=== PATIENT | male | born 1935 | race African-American/Black ===

== ENCOUNTER 2020-10-10 13:11 | Inpatient (IN) ==
[2020-10-10] MEDS ORDERED: ASPIRIN 325 MG TABLET PO STA (13:52)
[2020-10-10 14:12] LABS: Basophils % 0.3 % (0.0-0.8); Eosinophils # 0.6 10*3/uL (0.0-0.87); Eosinophils % 9.3 % (0.00-10.9); Hematocrit 30.3 VOL% (42.0-52.0); Hemoglobin 9.4 GM/DL (14.0-18.0); Immature Granulocytes % 0.8 %; Immature Granulocytes Absolute 0.05 #; Lymphocytes # 1.6 10*3/uL (1.4-4.0); Lymphocytes % 24.4 % (21.2-54.2); Mean Corpuscular Volume 95.6 FL (87-102); Neutrophils % 52.2 % (38.7-73.9); Platelet Count 644 T/CUMM (130-400); Red Blood Count 3.17 MC/CUMM (3.8-5.5); Red Cell Distribution Width 15.6 % (9.3-17.3); White Blood Count 6.4 T/CUMM (4-12)
[2020-10-10 14:22] LABS: INR 1.1; PT Patient Result 11.8 SECS (10.5-12.0)
[2020-10-10 14:39] LABS: Alanine Aminotransferase 23 U/L (16-61); Albumin 2.9 G/DL (3.4-5.0); Alkaline Phosphatase 83 U/L (45-117); Aspartate Amino Transferase 18 U/L (0-37); Bilirubin,Total < 0.39 MG/DL (0.20-1.00); Blood Urea Nitrogen 49 MG/DL (7-18); Calcium 8.4 MG/DL (8.5-10.1); Carbon Dioxide 23 MMOL/L (21-32); Estimated Glom Filtration Rate 35 ML/MIN; Glucose 125 MG/DL (74-106); Osmolality,Calculated 292.4 MOS/KG (273-304); Potassium 5.6 MMOL/L (3.5-5.1); Sodium 140 MMOL/L (136-145); Total Protein 6.6 G/DL (6.4-8.2)
[2020-10-10] MEDS ORDERED: GLUCAGON 1 MG VIAL IM PRN (15:40)
[2020-10-10] MEDS ORDERED: DEXTROSE 50% 25 GM/50 ML VIAL IV PRN (15:40)
[2020-10-10] MEDS: ENOXAPARIN 30 MG/0.3 ML SYRINGE SUBCUT SCH (20:29)
[2020-10-11 05:35] LABS: Basophils % 0.6 % (0.0-0.8); Eosinophils # 0.7 10*3/uL (0.0-0.87); Eosinophils % 9.9 % (0.00-10.9); Hematocrit 28.6 VOL% (42.0-52.0); Hemoglobin 8.9 GM/DL (14.0-18.0); Immature Granulocytes % 1.3 %; Immature Granulocytes Absolute 0.09 #; Lymphocytes # 2.1 10*3/uL (1.4-4.0); Lymphocytes % 29.5 % (21.2-54.2); Mean Corpuscular HGB Conc 31.1 GM/DL (32-36); Mean Corpuscular Volume 95.7 FL (87-102); Mean Platelet Volume 11.1 FL (9.6-12.0); Monocytes % 14.6 % (1.7-12.7); Neutrophils % 44.1 % (38.7-73.9); Platelet Count 593 T/CUMM (130-400); Red Blood Count 2.99 MC/CUMM (3.8-5.5); Red Cell Distribution Width 15.7 % (9.3-17.3); White Blood Count 6.9 T/CUMM (4-12)
[2020-10-11 06:11] LABS: Alanine Aminotransferase 17 U/L (16-61); Albumin 2.6 G/DL (3.4-5.0); Alkaline Phosphatase 75 U/L (45-117); Aspartate Amino Transferase 16 U/L (0-37); Bilirubin,Total < 0.39 MG/DL (0.20-1.00); Blood Urea Nitrogen 41 MG/DL (7-18); Calcium 8.9 MG/DL (8.5-10.1); Carbon Dioxide 21 MMOL/L (21-32); Estimated Glom Filtration Rate 39 ML/MIN; Glucose 99 MG/DL (74-106); HDL Cholesterol 44 MG/DL (40-60); Potassium 5.6 MMOL/L (3.5-5.1); Risk Ratio 4.82; Sodium 136 MMOL/L (136-145); Total Protein 6.3 G/DL (6.4-8.2); Triglycerides 100 MG/DL (2-150)
[2020-10-11] MEDS ORDERED: MAGNESIUM SULF RIDER 4 GM/100 ML PREMIX IV PRN (08:52)
[2020-10-11] MEDS ORDERED: MAGNESIUM SULF RIDER 2 GM/50 ML PREMIX IV PRN (08:52)
[2020-10-11] MEDS ORDERED: NITROGLYCERIN SL 0.4 MG TABLET SL PRN (09:24)
[2020-10-11] MEDS: ISOSORBIDE MONONITRATE 30 MG TABLET PO SCH (09:34)
[2020-10-11] MEDS: FERROUS SULFATE 325 MG TABLET PO SCH (09:34)
[2020-10-11] MEDS: carvediloL 12.5 MG TABLET PO SCH ×2 (09:34→20:44)
[2020-10-11] MEDS: ASPIRIN EC 81 MG TABLET PO SCH (09:34)
[2020-10-11] MEDS: CLOPIDOGREL 75 MG TABLET PO SCH (09:35)
[2020-10-11] MEDS ORDERED: SODIUM POLYSTYRENE SULFATE 15 GM/60 ML BOTTLE PO ONE (12:26)
[2020-10-11] MEDS: ATORVASTATIN 80 MG TABLET PO SCH (20:44)
[2020-10-11] MEDS: ENOXAPARIN 30 MG/0.3 ML SYRINGE SUBCUT SCH (20:45)
[2020-10-11] MEDS ORDERED: ATORVASTATIN 40 MG TABLET PO SCH (21:00)
[2020-10-12 05:45] LABS: Basophils % 0.3 % (0.0-0.8); Eosinophils # 0.7 10*3/uL (0.0-0.87); Eosinophils % 9.2 % (0.00-10.9); Hematocrit 28.4 VOL% (42.0-52.0); Hemoglobin 8.7 GM/DL (14.0-18.0); Immature Granulocytes % 0.8 %; Immature Granulocytes Absolute 0.06 #; Lymphocytes # 2.5 10*3/uL (1.4-4.0); Lymphocytes % 35.2 % (21.2-54.2); Mean Corpuscular HGB Conc 30.6 GM/DL (32-36); Mean Corpuscular Volume 94.7 FL (87-102); Mean Platelet Volume 11.1 FL (9.6-12.0); Monocytes % 12.4 % (1.7-12.7); Neutrophils % 42.1 % (38.7-73.9); Platelet Count 600 T/CUMM (130-400); Red Cell Distribution Width 15.5 % (9.3-17.3); White Blood Count 7.2 T/CUMM (4-12)
[2020-10-12 06:22] LABS: Calcium 8.7 MG/DL (8.5-10.1); Osmolality,Calculated 288.4 MOS/KG (273-304); Potassium 5.1 MMOL/L (3.5-5.1)
[2020-10-12] MEDS ORDERED: MAGNESIUM SULF RIDER 2 GM/50 ML PREMIX IV ONE (08:07)
[2020-10-12] MEDS ORDERED: carvediloL 25 MG TABLET PO SCH (09:00)
[2020-10-12] MEDS ORDERED: REGADENOSON 0.4 MG/5 ML SYRINGE IV ONE (09:21)
[2020-10-12] MEDS: ASPIRIN EC 81 MG TABLET PO SCH (10:02)
[2020-10-12] MEDS: ISOSORBIDE MONONITRATE 30 MG TABLET PO SCH (10:02)
[2020-10-12] MEDS: CLOPIDOGREL 75 MG TABLET PO SCH (10:03)
[2020-10-12] MEDS: FERROUS SULFATE 325 MG TABLET PO SCH (10:03)
[2020-10-12] MEDS: SODIUM ZIRCONIUM CYCLOSILICATE 10 GM PACK PO SCH (11:42)
[2020-10-12] MEDS: amLODIPine 5 MG TABLET PO SCH (12:24)
[2020-10-12] MEDS ORDERED: ALUM/MAG/SIMETH/LIDO VISC 1:1 30 ML BOTTLE PO ONE (12:59)
[2020-10-12] MEDS ORDERED: MORPHINE 2 MG/1 ML SYRINGE IV ONE (14:26)
[2020-10-12] MEDS ORDERED: ASPIRIN EC 325 MG TABLET PO ONE (14:42)
[2020-10-12] MEDS: CALCIUM CARBONATE CHEW 500 MG TABLET PO PRN ×2 (14:42→14:44)
[2020-10-12] MEDS ORDERED: ASPIRIN 325 MG TABLET PO ONE (14:55)
[2020-10-12] MEDS ORDERED: SODIUM CHLORIDE 0.9% 1,000 ML IV SCH (15:00)
[2020-10-12] MEDS ORDERED: MAGNESIUM SULF RIDER 2 GM/50 ML PREMIX IV PRN (15:14)
[2020-10-12] MEDS ORDERED: diphenhydrAMINE CAP 25 MG CAPSULE PO ONE (15:14)
[2020-10-12] MEDS ORDERED: DIAZEPAM 5 MG TABLET PO ONE (15:14)
[2020-10-12 15:18] LABS: High Sensitive Troponin I* 93.3 ng/L (0-78)
[2020-10-12] MEDS: carvediloL 12.5 MG TABLET PO SCH (18:43)
[2020-10-12] MEDS: ENOXAPARIN 30 MG/0.3 ML SYRINGE SUBCUT SCH (20:24)
[2020-10-12] MEDS: ATORVASTATIN 80 MG TABLET PO SCH (20:24)
[2020-10-13 04:59] LABS: Basophils % 0.1 % (0.0-0.8); Eosinophils # 0.6 10*3/uL (0.0-0.87); Hematocrit 27.4 VOL% (42.0-52.0); Hemoglobin 8.4 GM/DL (14.0-18.0); Immature Granulocytes % 0.8 %; Immature Granulocytes Absolute 0.06 #; Lymphocytes # 2.5 10*3/uL (1.4-4.0); Lymphocytes % 34.9 % (21.2-54.2); Mean Corpuscular HGB Conc 30.7 GM/DL (32-36); Mean Corpuscular Volume 93.2 FL (87-102); Mean Platelet Volume 11.1 FL (9.6-12.0); Monocytes % 12.2 % (1.7-12.7); Platelet Count 574 T/CUMM (130-400); Red Blood Count 2.94 MC/CUMM (3.8-5.5); Red Cell Distribution Width 15.5 % (9.3-17.3); White Blood Count 7.2 T/CUMM (4-12)
[2020-10-13 05:40] LABS: Calcium 8.4 MG/DL (8.5-10.1); Osmolality,Calculated 285.7 MOS/KG (273-304); Potassium 5.6 MMOL/L (3.5-5.1)
[2020-10-13] MEDS ORDERED: SODIUM POLYSTYRENE SULFATE 15 GM/60 ML BOTTLE PO ONE (07:36)
[2020-10-13] MEDS: ASPIRIN EC 81 MG TABLET PO SCH (08:23)
[2020-10-13] MEDS: CLOPIDOGREL 75 MG TABLET PO SCH (08:23)
[2020-10-13] MEDS: SODIUM ZIRCONIUM CYCLOSILICATE 10 GM PACK PO SCH (08:23)
[2020-10-13] MEDS: carvediloL 12.5 MG TABLET PO SCH ×2 (08:23→16:26)
[2020-10-13] MEDS: amLODIPine 5 MG TABLET PO SCH (08:23)
[2020-10-13] MEDS ORDERED: SODIUM CHLORIDE 0.9% 1,000 ML IV SCH (09:00)
[2020-10-13] MEDS: FERROUS SULFATE 325 MG TABLET PO SCH (09:53)
[2020-10-13] MEDS: ISOSORBIDE MONONITRATE 30 MG TABLET PO SCH (09:53)
[2020-10-13] MEDS ORDERED: DIAZEPAM 5 MG TABLET PO ONE (12:00)
[2020-10-13] MEDS ORDERED: HEPARIN/NACL 0.9% 2 UNITS/ML 3,000 UNIT/1,500 ML BAG IV ONE (12:05)
[2020-10-13] MEDS ORDERED: LIDOCAINE 1% 20 ML VIAL ONE (12:05)
[2020-10-13] MEDS ORDERED: diphenhydrAMINE CAP 25 MG CAPSULE ONE (12:11)
[2020-10-13] MEDS ORDERED: MIDAZOLAM 2 MG/2 ML VIAL ONE (13:00)
[2020-10-13] MEDS ORDERED: fentaNYL 100 MCG/2 ML VIAL ONE ×2 (13:00→14:08)
[2020-10-13] MEDS ORDERED: hydrALAZINE 20 MG/1 ML VIAL ONE (13:23)
[2020-10-13] MEDS: ATORVASTATIN 80 MG TABLET PO SCH (20:39)
[2020-10-13] MEDS: ENOXAPARIN 30 MG/0.3 ML SYRINGE SUBCUT SCH (20:39)
[2020-10-14 05:52] LABS: Calcium 8.4 MG/DL (8.5-10.1); Osmolality,Calculated 271.4 MOS/KG (273-304); Potassium 4.4 MMOL/L (3.5-5.1)
[2020-10-14] MEDS: carvediloL 12.5 MG TABLET PO SCH (08:40)
[2020-10-14] MEDS: SODIUM ZIRCONIUM CYCLOSILICATE 10 GM PACK PO SCH (08:40)
[2020-10-14] MEDS: ASPIRIN EC 81 MG TABLET PO SCH (08:40)
[2020-10-14] MEDS: FERROUS SULFATE 325 MG TABLET PO SCH (08:40)
[2020-10-14] MEDS: amLODIPine 5 MG TABLET PO SCH (08:40)
[2020-10-14] MEDS: ISOSORBIDE MONONITRATE 30 MG TABLET PO SCH (08:40)
[2020-10-14] MEDS: ENOXAPARIN 30 MG/0.3 ML SYRINGE SUBCUT SCH (21:02)
[2020-10-14] MEDS: ASCORBIC ACID 500 MG TABLET PO SCH (21:02)
[2020-10-14] MEDS: ATORVASTATIN 80 MG TABLET PO SCH (21:02)
[2020-10-14] MEDS: carvediloL 25 MG TABLET PO SCH (21:02)
[2020-10-15 06:37] LABS: Basophils % 0.1 % (0.0-0.8); Eosinophils # 0.6 10*3/uL (0.0-0.87); Eosinophils % 8.1 % (0.00-10.9); Hematocrit 26.1 VOL% (42.0-52.0); Immature Granulocytes % 0.9 %; Immature Granulocytes Absolute 0.06 #; Lymphocytes # 2.2 10*3/uL (1.4-4.0); Lymphocytes % 31.8 % (21.2-54.2); Mean Corpuscular HGB Conc 30.7 GM/DL (32-36); Mean Corpuscular Volume 92.9 FL (87-102); Mean Platelet Volume 11.1 FL (9.6-12.0); Monocytes % 10.9 % (1.7-12.7); Neutrophils % 48.2 % (38.7-73.9); Platelet Count 548 T/CUMM (130-400); Red Blood Count 2.81 MC/CUMM (3.8-5.5); Red Cell Distribution Width 15.4 % (9.3-17.3); White Blood Count 6.8 T/CUMM (4-12)
[2020-10-15 06:55] LABS: Calcium 8.1 MG/DL (8.5-10.1); Osmolality,Calculated 288.4 MOS/KG (273-304); Potassium 4.2 MMOL/L (3.5-5.1)
[2020-10-15 06:58] LABS: Calcium 8.1 MG/DL (8.5-10.1); Osmolality,Calculated 288.4 MOS/KG (273-304); Potassium 4.6 MMOL/L (3.5-5.1)
[2020-10-15] MEDS: ASCORBIC ACID 500 MG TABLET PO SCH ×2 (08:54→21:52)
[2020-10-15] MEDS: ISOSORBIDE MONONITRATE 30 MG TABLET PO SCH (08:54)
[2020-10-15] MEDS: ASPIRIN EC 81 MG TABLET PO SCH (08:54)
[2020-10-15] MEDS: SODIUM ZIRCONIUM CYCLOSILICATE 10 GM PACK PO SCH (08:55)
[2020-10-15] MEDS: amLODIPine 5 MG TABLET PO SCH (08:55)
[2020-10-15] MEDS: carvediloL 25 MG TABLET PO SCH ×2 (08:55→21:52)
[2020-10-15] MEDS: FERROUS SULFATE 325 MG TABLET PO SCH (08:55)
[2020-10-15] MEDS ORDERED: amLODIPine 5 MG TABLET PO ONE (11:53)
[2020-10-15] MEDS ORDERED: BISACODYL 5 MG TABLET PO PRN (20:53)
[2020-10-15] MEDS ORDERED: BISACODYL 5 MG TABLET PO ONE (20:54)
[2020-10-15] MEDS: ATORVASTATIN 80 MG TABLET PO SCH (21:50)
[2020-10-15] MEDS: ENOXAPARIN 30 MG/0.3 ML SYRINGE SUBCUT SCH (21:52)
[2020-10-16 06:17] LABS: Basophils % 0.2 % (0.0-0.8); Eosinophils # 0.6 10*3/uL (0.0-0.87); Eosinophils % 9.1 % (0.00-10.9); Hematocrit 26.7 VOL% (42.0-52.0); Hemoglobin 8.3 GM/DL (14.0-18.0); Immature Granulocytes % 0.6 %; Immature Granulocytes Absolute 0.04 #; Lymphocytes # 1.9 10*3/uL (1.4-4.0); Lymphocytes % 28.4 % (21.2-54.2); Mean Corpuscular HGB Conc 31.1 GM/DL (32-36); Mean Corpuscular Volume 93.7 FL (87-102); Mean Platelet Volume 10.9 FL (9.6-12.0); Monocytes % 10.3 % (1.7-12.7); Neutrophils % 51.4 % (38.7-73.9); Platelet Count 536 T/CUMM (130-400); Red Blood Count 2.85 MC/CUMM (3.8-5.5); Red Cell Distribution Width 15.4 % (9.3-17.3); White Blood Count 6.5 T/CUMM (4-12)
[2020-10-16 06:55] LABS: Calcium 8.2 MG/DL (8.5-10.1); Osmolality,Calculated 288.5 MOS/KG (273-304); Potassium 4.3 MMOL/L (3.5-5.1)
[2020-10-16] MEDS: FERROUS SULFATE 325 MG TABLET PO SCH (09:15)
[2020-10-16] MEDS: ASPIRIN EC 81 MG TABLET PO SCH (09:15)
[2020-10-16] MEDS: SODIUM ZIRCONIUM CYCLOSILICATE 10 GM PACK PO SCH (09:15)
[2020-10-16] MEDS: ISOSORBIDE MONONITRATE 30 MG TABLET PO SCH (09:16)
[2020-10-16] MEDS: ASCORBIC ACID 500 MG TABLET PO SCH ×2 (09:16→20:59)
[2020-10-16] MEDS: amLODIPine 10 MG TABLET PO SCH (09:16)
[2020-10-16] MEDS: carvediloL 25 MG TABLET PO SCH ×2 (09:16→21:00)
[2020-10-16] MEDS: ATORVASTATIN 80 MG TABLET PO SCH (21:00)
[2020-10-16] MEDS: ENOXAPARIN 30 MG/0.3 ML SYRINGE SUBCUT SCH (21:01)
[2020-10-17 05:31] LABS: Basophils % 0.2 % (0.0-0.8); Eosinophils # 0.5 10*3/uL (0.0-0.87); Eosinophils % 7.8 % (0.00-10.9); Hematocrit 24.6 VOL% (42.0-52.0); Hemoglobin 7.6 GM/DL (14.0-18.0); Immature Granulocytes % 0.8 %; Immature Granulocytes Absolute 0.05 #; Lymphocytes # 1.8 10*3/uL (1.4-4.0); Mean Corpuscular HGB Conc 30.9 GM/DL (32-36); Mean Corpuscular Volume 93.9 FL (87-102); Mean Platelet Volume 11.2 FL (9.6-12.0); Monocytes % 10.6 % (1.7-12.7); Neutrophils % 51.6 % (38.7-73.9); Platelet Count 520 T/CUMM (130-400); Red Blood Count 2.62 MC/CUMM (3.8-5.5); Red Cell Distribution Width 15.4 % (9.3-17.3); White Blood Count 6.3 T/CUMM (4-12)
[2020-10-17 05:48] LABS: Calcium 8.1 MG/DL (8.5-10.1); Osmolality,Calculated 286.7 MOS/KG (273-304); Potassium 4.3 MMOL/L (3.5-5.1)
[2020-10-17] MEDS ORDERED: SODIUM CHLORIDE 0.9% 1,000 ML IV PRN ×2 (08:10→08:34)
[2020-10-17] MEDS: amLODIPine 10 MG TABLET PO SCH (08:44)
[2020-10-17] MEDS: SODIUM ZIRCONIUM CYCLOSILICATE 10 GM PACK PO SCH (08:44)
[2020-10-17] MEDS: FERROUS SULFATE 325 MG TABLET PO SCH (08:45)
[2020-10-17] MEDS: ASPIRIN EC 81 MG TABLET PO SCH (08:45)
[2020-10-17] MEDS: ACETYLCYSTEINE 600 MG CAPSULE PO SCH ×2 (08:45→20:42)
[2020-10-17] MEDS: ISOSORBIDE MONONITRATE 30 MG TABLET PO SCH (08:45)
[2020-10-17] MEDS: ASCORBIC ACID 500 MG TABLET PO SCH ×2 (08:45→20:42)
[2020-10-17] MEDS: hydrALAZINE 25 MG TABLET PO SCH ×3 (08:45→20:42)
[2020-10-17] MEDS: carvediloL 25 MG TABLET PO SCH ×2 (08:45→20:42)
[2020-10-17] MEDS: SODIUM CHLORIDE 0.9% 1,000 ML IV SCH (08:50)
[2020-10-17] MEDS: CLOPIDOGREL 75 MG TABLET PO SCH (10:43)
[2020-10-17] MEDS: ATORVASTATIN 80 MG TABLET PO SCH (20:42)
[2020-10-17] MEDS: ENOXAPARIN 30 MG/0.3 ML SYRINGE SUBCUT SCH (20:43)
[2020-10-18] MEDS: SODIUM CHLORIDE 0.9% 1,000 ML IV SCH ×2 (01:42→15:10)
[2020-10-18 05:49] LABS: Basophils % 0.2 % (0.0-0.8); Eosinophils # 0.4 10*3/uL (0.0-0.87); Eosinophils % 7.4 % (0.00-10.9); Hematocrit 29.5 VOL% (42.0-52.0); Immature Granulocytes % 0.9 %; Immature Granulocytes Absolute 0.05 #; Lymphocytes # 1.6 10*3/uL (1.4-4.0); Lymphocytes % 27.1 % (21.2-54.2); Mean Corpuscular HGB Conc 31.5 GM/DL (32-36); Mean Corpuscular Volume 89.7 FL (87-102); Mean Platelet Volume 11.1 FL (9.6-12.0); Monocytes % 11.2 % (1.7-12.7); Neutrophils % 53.2 % (38.7-73.9); Platelet Count 506 T/CUMM (130-400); Red Cell Distribution Width 16.7 % (9.3-17.3); White Blood Count 5.8 T/CUMM (4-12)
[2020-10-18 05:56] LABS: Hemoglobin 9.3 GM/DL (14.0-18.0); Red Blood Count 3.29 MC/CUMM (3.8-5.5)
[2020-10-18 06:01] LABS: Calcium 8.2 MG/DL (8.5-10.1); Osmolality,Calculated 287.4 MOS/KG (273-304)
[2020-10-18] MEDS: ISOSORBIDE MONONITRATE 30 MG TABLET PO SCH (10:14)
[2020-10-18] MEDS: CLOPIDOGREL 75 MG TABLET PO SCH (10:14)
[2020-10-18] MEDS: hydrALAZINE 25 MG TABLET PO SCH (10:15)
[2020-10-18] MEDS: SODIUM ZIRCONIUM CYCLOSILICATE 10 GM PACK PO SCH (10:15)
[2020-10-18] MEDS: amLODIPine 10 MG TABLET PO SCH (10:15)
[2020-10-18] MEDS: ASPIRIN EC 81 MG TABLET PO SCH (10:15)
[2020-10-18] MEDS: FERROUS SULFATE 325 MG TABLET PO SCH (10:15)
[2020-10-18] MEDS: carvediloL 25 MG TABLET PO SCH ×2 (10:15→22:50)
[2020-10-18] MEDS: ASCORBIC ACID 500 MG TABLET PO SCH ×2 (10:15→22:50)
[2020-10-18] MEDS: ACETYLCYSTEINE 600 MG CAPSULE PO SCH (10:20)
[2020-10-18] MEDS: ATORVASTATIN 80 MG TABLET PO SCH (22:49)
[2020-10-18] MEDS: ENOXAPARIN 30 MG/0.3 ML SYRINGE SUBCUT SCH (22:50)
[2020-10-19] MEDS ORDERED: ACETYLCYSTEINE 600 MG CAPSULE PO ONE (03:00)
[2020-10-19] MEDS: SODIUM CHLORIDE 0.9% 1,000 ML IV SCH (06:21)
[2020-10-19 06:42] LABS: Basophils % 0.3 % (0.0-0.8); Eosinophils # 0.5 10*3/uL (0.0-0.87); Eosinophils % 8.4 % (0.00-10.9); Hematocrit 29.7 VOL% (42.0-52.0); Hemoglobin 9.5 GM/DL (14.0-18.0); Immature Granulocytes % 1.2 %; Immature Granulocytes Absolute 0.07 #; Lymphocytes # 1.4 10*3/uL (1.4-4.0); Lymphocytes % 23.2 % (21.2-54.2); Mean Platelet Volume 11.2 FL (9.6-12.0); Monocytes % 10.3 % (1.7-12.7); Neutrophils % 56.6 % (38.7-73.9); Platelet Count 491 T/CUMM (130-400); Red Cell Distribution Width 16.7 % (9.3-17.3); White Blood Count 5.8 T/CUMM (4-12)
[2020-10-19 07:04] LABS: Calcium 8.3 MG/DL (8.5-10.1); Osmolality,Calculated 288.3 MOS/KG (273-304); Potassium 3.9 MMOL/L (3.5-5.1)
[2020-10-19] MEDS: ACETYLCYSTEINE 600 MG CAPSULE PO SCH (07:28)
[2020-10-19] MEDS: FERROUS SULFATE 325 MG TABLET PO SCH (11:40)
[2020-10-19] MEDS: carvediloL 25 MG TABLET PO SCH (11:40)
[2020-10-19] MEDS: ISOSORBIDE MONONITRATE 30 MG TABLET PO SCH (11:40)
[2020-10-19] MEDS: ASPIRIN EC 81 MG TABLET PO SCH (11:40)
[2020-10-19] MEDS: SODIUM ZIRCONIUM CYCLOSILICATE 10 GM PACK PO SCH (11:40)
[2020-10-19] MEDS: amLODIPine 10 MG TABLET PO SCH (11:41)
[2020-10-19] MEDS: CLOPIDOGREL 75 MG TABLET PO SCH (11:41)
[2020-10-19] MEDS: ASCORBIC ACID 500 MG TABLET PO SCH (11:41)
[2020-10-19 13:01] VITALS: BP 158/68
== END 2020-10-19 12:50 | disposition home health service (06) | DRG 281 ==
LOC: N.ED 13:11 → N.EDINP 13:11 → SUATTDRO 15:40 → N.TELEN 18:13 → SUATTDRO 10-12 16:15 → N.TELEN 10-17 13:03
PROVIDERS: ADMIT Internal Medicine; ATTEND Internal Medicine Cardiovascular Disease
PROC: CLCCHCL (ICD-10-PCS; 2020-10-13 12:45)